=== PATIENT | male | born 1980 | race Caucasian/White ===

== ENCOUNTER 2024-09-09 13:08 | Emergency (ER) | payer OTHER ==
[~2024-09-09] VITALS: Ht 180.3 cm; Wt 102.1 kg
[2024-09-09] MEDS ORDERED: PREDNISONE10 MG PO (13:18)
[2024-09-09] MEDS ORDERED: Bacitracin Zinc 14 GM TUBE T ONE (13:55)
[2024-09-09] MEDS ORDERED: Lidocaine Hydrochloride 2% 10 ML AMP SC ONE (13:55)
== END 2024-09-09 14:58 | disposition home or self-care (01) ==
LOC: ED 13:08
DX: S61.215A Laceration without foreign body of left ring finger without damage to nail, initial encounter (principal); Z88.5 Allergy status to narcotic agent; Z88.8 Allergy status to other drugs, medicaments and biological substances; W26.8XXA Contact with other sharp object(s), not elsewhere classified, initial encounter; Y93.89 Activity, other specified; Y92.89 Other specified places as the place of occurrence of the external cause; Y99.8 Other external cause status